=== PATIENT | female | born 1995 | race Caucasian/White ===

== ENCOUNTER 2017-11-11 16:17 | Emergency (ER) | payer SELFPAY ==
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
[2017-11-11 19:53] VITALS: BP 119/74
== END 2017-11-11 19:52 | disposition home or self-care (01) ==
LOC: ED 16:17
DX: S69.92XA Unspecified injury of left wrist, hand and finger(s), initial encounter (principal); S69.91XA Unspecified injury of right wrist, hand and finger(s), initial encounter; V43.62XA Car passenger injured in collision with other type car in traffic accident, initial encounter; Y93.I9 Activity, other involving external motion; F17.200 Nicotine dependence, unspecified, uncomplicated
CPT/HCPCS: 73140; 99282